=== PATIENT | female | born 1975 | race Caucasian/White ===

== ENCOUNTER 2024-08-21 06:27 | Day surgery (SDC) | payer BC, SELFPAY | END 2024-08-21 14:20 | disposition home or self-care (01) | LOC: GI 06:27 | PROVIDERS: ATTENDING PHYSICIAN Internal Medicine Gastroenterology | DX: Z12.11 Encounter for screening for malignant neoplasm of colon (principal); R19.5 Other fecal abnormalities; K64.8 Other hemorrhoids; K57.30 Diverticulosis of large intestine without perforation or abscess without bleeding; D12.0 Benign neoplasm of cecum; K63.5 Polyp of colon; Z83.719 Family history of colon polyps, unspecified | CPT/HCPCS: 45385; 88305 ==

== ENCOUNTER → 2024-09-12 18:34 | Outpatient (REF) | payer BC, SELFPAY | LOC: WDC 18:34 | PROVIDERS: ATTENDING PHYSICIAN Nurse Practitioner Family | DX: Z12.31 Encounter for screening mammogram for malignant neoplasm of breast (principal) | CPT/HCPCS: 77063; 77067 ==

== ENCOUNTER 2025-03-09 06:24 | Day surgery (SDC) | payer BC, SELFPAY ==
[2025-03-09 07:16] VITALS: BP 118/67
[2025-03-09 07:31] VITALS: BMI 22.8
[2025-03-09 07:38] VITALS: BMI 22.8
[2025-03-09 08:39] VITALS: BP 108/59
[2025-03-09 08:45] VITALS: BP 99/70
[2025-03-09 09:00] VITALS: BP 110/86
[2025-03-09 09:12] VITALS: BP 101/72
== END 2025-03-09 09:20 | disposition home or self-care (01) ==
LOC: SDS 06:24
PROVIDERS: ATTENDING PHYSICIAN Internal Medicine Gastroenterology
DX: D12.1 Benign neoplasm of appendix (principal); K57.30 Diverticulosis of large intestine without perforation or abscess without bleeding; K64.0 First degree hemorrhoids; Z86.0101 Personal history of adenomatous and serrated colon polyps; Z98.890 Other specified postprocedural states
CPT/HCPCS: 45385; 45380; 88305

== ENCOUNTER 2025-06-15 10:15 | Emergency (ER) | payer BC, SELFPAY ==
[2025-06-15 10:33] VITALS: BP 121/77
--- NOTE | 2025-06-15 11:47 | ED.GENMED ---
History of Present Illness
General
Chief Complaint: Skin Problem
Time Seen by Provider: 06/15/25 11:12
History of Present Illness
History of Present Illness:
see MDM
Phy Exam
Physical Exam
Physical Exam:
GENERAL: Alert , in no apparent distress
HEAD: NCAT
no facial droop
EYE: pupils equal and reactive, no nystagmus, no photophobia, minimal erythema to conjunctiva
NECK: Supple,full rom, nontender
ENT: o/p clr, mmm.
CARDIAC: Regular rate and rhythm . no edema
LUNGS: Clear breath sounds bilaterally, no acute respiratory distress, no wheezes/rales/rhonchi
ABDOMEN: Soft, without focal tenderness, no r/g, no cvat
NEUROLOGICAL: Alert and orientedx 4, cn intact, no facial asymmetry, 5/5 strength in UE/LE, sensation intact, romberg neg, ambulates without assistance, neg pronator drift
SKIN: Warm and dry, skin intact.
cluster of small papules or vesicles erythematous base to R pentecostal
no other rash
some mild erythema of R cheek
nontender
MUSCULOSKELETAL: No edema, well perfused.
PSYCH: Normal and appropriate interaction.
Course
Orders/Labs/Results
Orders:
Orders
06/15/25 11:45
Valacyclovir HCl [Valtrex] 1,000 mg PO NOW STA
06/15/25 12:00
Valacyclovir HCl [Valtrex] 1,000 mg PO BID
Vital Signs
Initial and Last Documented VS:
Initial Vital Signs
Temp Pulse Resp BP Pulse Ox
36.8 C 64 18 121/77 99
06/15/25 10:33 06/15/25 10:33 06/15/25 10:33 06/15/25 10:33 06/15/25 10:33
Last Documented Vital Signs
Temp Pulse Resp BP Pulse Ox
36.8 C 64 18 121/77 99
06/15/25 10:33 06/15/25 10:33 06/15/25 10:33 06/15/25 10:33 06/15/25 11:48
MDM/Problems Addressed
Differential Diagnosis Includes:
see MDM
MDM/Problems Addressed:
Note:
CHIEF COMPLAINT(S)
Facial numbness and tingling; rash on the face with a previous history of shingles.
HISTORY OF PRESENT ILLNESS
The patient is a 50-year-old female who presents with complaints of a rash that started on her right face yesterday with some tingling and funny feeling that started a day before. She reports a similar episode of shingles on her back earlier this
summer. The onset of current symptoms was noted 2 nights ago, with some mild tingling feeling on her R pentecostal. She feels a tingling sensation that she describes as feeling like �electricity� under the skin.yesterday she noticed a bump on the R side
of her pentecostal that looked maybe like a bug bite but wasn't itchy. and she noticed some redness to her R eye so she used visine; she can fully move her eyes, no facial droop or weakness.
The patient has a history of a previous shingles episode in february to her R back
she says she still feels some discomfort there at times and skin sensitivity
The patient denies any recent fever, chills, chest pain, or dyspnea. There is a past significant episode of Lyme disease mentioned. She has no history of autoimmune diseases.
No history of facial droop
Also said her right hand sometimes feels tingly but not currently and she has had neck issues in the past which she thinks is contributing
No headache no fever
PAST MEDICAL AND SURGICAL HISTORY
Previous episode of shingles and a significant history of Lyme disease noted.
PHYSICAL EXAM
GENERAL: Alert , in no apparent distress
HEAD: NCAT
EYE: pupils equal and reactive, no nystagmus, no photophobia, minimal conjunctival injection on the right side, no drainage, no photophobia
Tetracaine applied, fluorescein very faint uptake in the lower cornea not overlying the pupil
NECK: Supple,full rom, nontender
ENT: o/p clr, mmm. No ear lesions
CARDIAC: Regular rate and rhythm . no edema
LUNGS: Clear breath sounds bilaterally, no acute respiratory distress, no wheezes/rales/rhonchi
ABDOMEN: Soft, without focal tenderness, no r/g, no cvat
NEUROLOGICAL: Alert and orientedx 4, cn intact, no facial asymmetry, 5/5 strength in UE/LE, sensation intact, romberg neg, ambulates without assistance, neg pronator drift patient has no numbness to her arms on palpation
SKIN: Warm and dry, skin intact.
MUSCULOSKELETAL: No edema, well perfused.
PSYCH: Normal and appropriate interaction.
PROBLEM LIST
- Acute Problems:
- Shingles rash on the face near the right eye.
- Facial numbness and tingling.
- Chronic Problems:
- History of shingles.
- History of Lyme disease.
PLAN
1. Initiation of Valacyclovir as antiviral treatment for the shingles.
2. Referral to an mental health aides teacher for an eye examination to rule out corneal involvement due to proximity of the rash to the eye.
3. Patient advised to monitor for symptoms of [place] palsy and report if they occur.
4. Follow-up with a family practitioner if symptoms escalate or new symptoms develop over the weekend.
DIFFERENTIAL DIAGNOSIS
The Differential Diagnosis includes, in no particular order and is not limited to:
1. Herpes Zoster (shingles)
2. [place] Palsy
3. Herpes Simplex Virus
4. Contact Dermatitis
5. Allergic Conjunctivitis
6. Trigeminal Neuralgia
7. Migraine with Aura
8. Lyme Disease Reactivation
9. Central Nervous System Disorders (e.g., Multiple Sclerosis)
10. Autoimmune conditions affecting the nervous system.
50-year-old female with history of previous shingles rash on her right back few months ago here with what looks like shingles again with tingling and funny feeling in her right face along with a very early vesicular rash in clusters on the right
pentecostal, the right eye is minimally injected. She has no photophobia or eye pain or vision changes. I did do fluorescein staining and there was a slight uptake. Concern for herpes ophthalmicus. She has no lesions in her ear. There is no facial
droop. She has normal sensation despite feeling like it feels funny in her right face. Her arms and legs had normal strength and sensation.
I spoke with the ED attending about this patient
Given the uptake on her cornea I recommended that she see an eye doctor and I did speak with Dr. Busch who could see her in the office now. Patient will be discharged after her first dose of Valtrex and recommended to follow-up
*Pulse Oximetry
SaO2: 99
Oxygen Mode of Delivery: Room air
Patient hypoxic: no (99)
*Critical Care Note
Total Time (30-74mins, 75-104mins- exclusive of procedures): Not Applicable
ED Attending Note
-
Portions of this chart may have been created with voice recognition software.� Occasional wrong word or��sound alike� substitutions may have occurred due to the inherent limitations of voice recognition software.
Discharge Plan
Departure
Patient Disposition: Home (Routine Discharge)
Date of Disposition: 06/15/25
Time of Disposition: 12:23
Patient with high blood pressure during this ER visit?: No
Condition: Fair
Discharge Problem:
Shingles
Instructions: Shingles
Prescriptions:
New
valacyclovir 1 gram tablet
1,000 mg PO TID Qty: 21 0RF
Referrals:
Jaden Busch MD [Active, Ophthalmology] - Next open appointment
Ashley Cooper CRNP [Family Provider, Family Practice] - Follow up in 2-3 days
Activity Restrictions/Additional Instructions:
Your rash appears like shingles. You should take the Valtrex 3 times a day for 7 [address] Go directly to Dr. Busch's office. Watch for worsening symptoms like facial droop, fever, rash on your nose, severe eye pain and return as needed.
Confusion, neck stiffness, severe headache etc.
Interventions
Interventions:
*Risk Screen - Suicide Last Done: 06/15/25 10:33
*General Assessment Last Done: 06/15/25 10:33
*Neglect/Abuse Screening Last Done: 06/15/25 10:33
*ED COVID-19 Vaccine History Last Done: 06/15/25 10:33
*ED Influenza Vaccine History Last Done: 06/15/25 10:33
*Nursing Disposition Last Done: 06/15/25 12:45
ED-Skin Assessment Last Done: 06/15/25 12:00
Discharge Date and Time
Discharge Date/Time: 06/15/25 12:46
Print Language: KAZAKH
[2025-06-15] MEDS: VALTREX 1000 MG PO (11:54)
== END 2025-06-15 12:46 | disposition home or self-care (01) ==
LOC: EMR 10:15
PROVIDERS: EMERGENCY PHYSICIAN Emergency Medicine; FAMILY PHYSICIAN Nurse Practitioner Family
DX: B02.9 Zoster without complications (principal); Z86.19 Personal history of other infectious and parasitic diseases
CPT/HCPCS: 99282

== ENCOUNTER 2025-07-06 10:21 | Inpatient (IN) | payer BC, SELFPAY ==
[2025-06-22 09:25] LABS: Hematocrit 37.1 % (37.0-47.0); Hemoglobin 12.7 g/dL (12.0-16.0); Mean Corp Hgb Conc. 34.2 g/dL (33.0-37.0); Mean Corpuscular Volume 89.4 fL (81.0-99.0); Platelet Count 246 10^3/uL (130-400); Red Cell Dist. Width 11.9 % (11.5-14.5)
[2025-06-22 09:27] LABS: INR 1.00; PT 13.5 Sec (11.4-14.6)
[2025-06-22 09:28] LABS: APTT 30.7 Sec (23.4-35.0)
[2025-06-22 09:51] LABS: ALT (SGPT) 21 U/L (0-35); AST (SGOT) 29 U/L (14-36); Albumin 4.5 g/dl (3.5-5.0); Alkaline Phosphatase 56 U/L (38-126); Blood Urea Nitrogen 16 mg/dl (7-17); Calcium 9.6 mg/dl (8.4-10.2); Carbon Dioxide 29 mmol/L (22-30); Chloride 105 mmol/L (98-107); Glucose 100 mg/dl (70-99); Potassium 4.9 mmol/L (3.5-5.1); Sodium 138 mmol/L (135-145); Total Protein 6.9 g/dl (6.3-8.2); eGFR > 60.00
[2025-06-22 11:28] LABS: Glycohemoglobin (HgbA1c) 5.3 % (4.0-5.9)
[2025-06-22 14:06] VITALS: BMI 21.9
[2025-07-06] VITALS (9 sets, daily range): BP systolic 104–131; BP diastolic 38–72; BMI 21.9
[2025-07-06] MEDS: NORMOSOL-R/PLASMALYTE-A 1000 IV (11:34)
[2025-07-06] MEDS: LYRICA 150 MG PO (11:35)
[2025-07-06] MEDS: CELEBREX 200 MG PO (11:36)
[2025-07-06] MEDS: TYLENOL 1000 MG PO (11:36)
[2025-07-06] MEDS: TRANSDERM-SCOP 1 PATCH TRANSDERM (11:47)
[2025-07-06] MEDS: HEPARIN 5000 UNITS SC (12:31)
[2025-07-06] MEDS: RELISTOR 12 MG SC (12:33)
--- NOTE | 2025-07-06 15:38 | W.IMMPOSTOP ---
Addendum entered and electronically signed by William Laughlin MD 07/06/25 16:21:
patient's sister was updated via phone
Original Note:
Surgical Immed Post Op Note
-
Primary Surgeon: William Laughlin MD
Assisting Surgeon: AMANDA Henson
Pre-op Diagnosis: Appendiceal polyp
Post-op Diagnosis: Appendiceal polyp
Procedure Performed: Robotic appendectomy with partial cecectomy, repair of liver injury, intraoperative colonoscopy, lysis of adhesions, laparoscopic TAP block
Anesthesia Type: General
Specimen / Cultures: Appendix with partial cecum
Estimated Blood Loss: 15 mL
Complications: None
Operative Findings: After Veress entry, identified a punctate injury to the liver with some oozing, likely due to the veress needle; placed 3 robotic ports and controlled liver injury with electrocautery; redundant ascending colon with the appendix
draped into the pelvis; performed intraoperative colonoscopy and identified the ileocecal valve and appendiceal orifice; there was liquid stool precluding adequate visualization; lavaged the area with adequate visualization of the AO; appendiceal
orifice without any obvious polyp tissue seen extending beyond the appendiceal orifice; docked the robotic and lysed adhesions from the appendix and cecum to the right lower quadrant and right pelvic brim; identified the right ureter and kept the
safe; mobilized the appendix and cecum; divided the mesentery of the appendix with the vessel sealer; 1 to 2 cm margin of cecum was easily obtainable without interfering with the terminal ileum or ileocecal valve; stapled across with the 60 mm blue
load of the robotic stapler; small amount of oozing noted at the corner of the staple line, controlled with figure of eight 2-0 Vicryl stitch; closed the 12 mm port with the suture passer and an 0 Vicryl stitch; had some oozing from the peritoneal
aspect of the port, controlled with electrocautery; gave dose of TXA; evaluated liver injury once more and remainder of operative field, which remained hemostatic; performed laparoscopic TAP block and removed right mid/lower port under direct
visualization, no bleeding noted; removed the suprapubic port and camera and abdomen collapsed; injected remainder of local (total of 50 mL of 0.25% Marcaine with epi and 0.5 mg of Decadron) around the incisions; closed with 4 Monocryl and Dermabond
--- NOTE | 2025-07-06 15:54 | OR.RPT ---
Operative Report
Operative Report
DATE OF OPERATION: 07/06/2025
SURGEON: William Laughlin MD
PREOPERATIVE DIAGNOSIS: Appendiceal orifice polyp
POSTOPERATIVE DIAGNOSIS: Appendiceal orifice polyp
OPERATION: Robotic appendectomy with partial cecectomy, repair of liver injury, intraoperative colonoscopy, lysis of adhesions, laparoscopic TAP block
ASSISTANTS:
1. AMANDA Henson
ANESTHESIA: General
ESTIMATED BLOOD LOSS: 15 mL
FINDINGS:
1. Punctate liver injury from Veress needle placement, easily controlled with electrocautery
2. Intraoperative colonoscopy with adequate visualization of the appendiceal orifice after lavage of the cecum; no concerning polyp tissue extending beyond the appendiceal orifice
3. Filmy adhesions from the appendix to the right pelvic brim and cecum to the right lower quadrant
SPECIMENS:
1. Appendix with partial cecum
DRAINS: None
COMPLICATIONS: No immediate complications.
INDICATIONS: The patient is a 50-year-old female who was found to have a precancerous polyp within the appendiceal orifice that was not amenable to endoscopic removal. Therefore, I recommended appendectomy. I explained the possibility of needing
to perform an ileocolic resection if the appendiceal orifice was too close to the terminal ileum or if there was polyp tissue extending beyond the orifice requiring more extensive resection. The operation was discussed with the patient in detail,
including the risks, benefits and alternatives. Risks described included, but not limited to, bleeding, infection, damage to nearby structures (i.e., bowel, solid organ, bladder), need for more extensive resection than anticipated, recurrence of
polyp, positive margin, conversion to open, and anesthetic risks. The patient understood and agreed to proceed. The consent was signed and placed in the chart.
PROCEDURE IN DETAIL: The patient was taken to the operating room and placed on the operating table in supine position. Sequential compression devices were placed bilaterally. General anesthesia was induced and the patient was intubated without
complication. Bilateral arms were tucked. Bryant catheter was placed with sterile technique. Anesthesia placed an orogastric tube. Preoperative antibiotics were given. The abdomen was shaved, prepped and draped in a sterile fashion. A marking
pen was used to jacqueline out the midline. A time-out was performed verifying the correct patient, procedure, operative site, positioning, and special equipment.
At [place], using an 11 blade scalpel, an 8 mm incision was made. A Veress needle was used to obtain abdominal access. After 3 clicks, insufflation was initiated and the opening pressure was noted to be less than 8 mmHg. The abdomen was
insufflated to a pressure of 12, which the patient tolerated well. The left mid/upper 8 mm robotic trocar was introduced and the robotic endoscope advanced. There was a punctate injury noted on the anterior surface of the left lobe of the liver
that was oozing a small amount of blood. No other injuries were noted from Veress needle or port placement. Two additional ports were placed under direct visualization at the suprapubic position, 2 fingerbreadths above the pubic symphysis, and in
the left mid/lower abdomen along a diagonal. Care was taken to avoid injury to the epigastric vessels and the bladder.
Using laparoscopic scissors and electrocautery, the oozing from the liver injury was easily controlled. Using atraumatic graspers, the omentum was retracted above the transverse colon. The patient was placed in slight Trendelenburg. The ascending
colon was somewhat redundant and the cecum was seen within the pelvis. This was retracted and the appendix was identified. There were filmy adhesions from the appendix to the right pelvic brim as well as the cecum and ascending colon to the right
lower quadrant and right gutter. I performed intraoperative colonoscopy. The abdomen was desufflated. The lubricated colonoscope was passed transanally and carefully advanced to the cecum, confirmed by visualizing the ileocecal valve and the
appendiceal orifice. There was some liquid stool that was precluding adequate visualization of the cecum. After copious lavage, I was able to adequately visualize the cecum and appendiceal orifice. There was no polyp tissue seen extending outside
of the appendiceal orifice. Therefore, I elected to proceed with appendectomy with partial cecectomy. I suctioned the gas from the cecum and ascending colon. The colonoscope was pulled back into the ascending colon and turned off. It was secured
to the drapes. The patient was placed in [id number] with more Trendelenburg. The robot was docked from the patient's right side. The instruments introduced were the bipolar grasper, camera and scissors.
I retracted the small bowel from the pelvis to expose the right lower quadrant. I elevated the appendix and lysed the filmy adhesions to the right pelvic brim. I identified the right ureter and kept it safe from my dissection. I continued the
mobilization by lysing the adhesions from the cecum to the right lower quadrant. I divided the mesoappendix with the vessel sealer to the base of the appendix. I divided the ligament of Treves. The appendix and cecum were now adequately
mobilized. There was at least 2 to 3 cm of cecum between the base of the appendix and the terminal ileum. Therefore, I proceeded with appendectomy and partial cecectomy. The left mid/upper robotic port was upsized to a 12 mm port under direct
visualization. I divided across the cecum with the 60 mm robotic stapler with a blue load to include about 1 cm margin of cecum. The medial corner of the staple line had a slight ooze. I controlled this with a 2-0 Vicryl stitch in a
[id number] fashion. The specimen was placed in an endoscopic retrieval bag and removed from the 12 mm port. The operative field was assessed once more and was hemostatic. The liver injury was also evaluated and remained hemostatic.
The 12 mm port site was closed with an 0 Vicryl stitch in a simple interrupted fashion using the suture passer under direct visualization. There was a slight ooze from the peritoneal aspect of this incision. TXA was administered and the oozing was
controlled with electrocautery. The robotic instruments were removed and the robot was undocked. A laparoscopic TAP block was performed. A total of 30 mL of 0.25% Marcaine with epinephrine mixed with 0.3 mg of Decadron was injected in the
transversus abdominis plane bilaterally in 3 locations. The operative field was assessed once more and remained hemostatic. The left mid/lower port was removed under direct visualization and no bleeding was noted. The suprapubic port and camera
were removed. The abdomen was allowed to collapse. The incisions were injected with an additional of 20 mL of 0.25% Marcaine with epinephrine and 0.2 mg of dexamethasone. The skin of the ports were closed with 4-0 Monocryl in subcuticular fashion.
Dermabond was used for dressing.
At this point, the procedure was complete. The patient was awoken and extubated without complication. The bryant was removed. All needle, sponge and instrument counts were reported as correct. The patient tolerated the procedure well and was
transferred to the recovery room in stable condition.
DICTATED BY: William Laughlin MD
[2025-07-06] MEDS: TYLENOL 650 MG PO (18:06)
== END 2025-07-06 19:03 | disposition home or self-care (01) | DRG 331 ==
LOC: AMOS 10:21
PROVIDERS: ADMITTING PHYSICIAN Surgery; FAMILY PHYSICIAN Nurse Practitioner Family
PROC: 0DBH4ZZ Excision of Cecum, Percutaneous Endoscopic Approach (ICD-10-PCS; 2025-07-06)
PROC: 0DTJ4ZZ Resection of Appendix, Percutaneous Endoscopic Approach (ICD-10-PCS; 2025-07-06)
PROC: 0DNU4ZZ Release Omentum, Percutaneous Endoscopic Approach (ICD-10-PCS; 2025-07-06)
PROC: 8E0W4CZ Robotic Assisted Procedure of Trunk Region, Percutaneous Endoscopic Approach (ICD-10-PCS; 2025-07-06)
DX: K63.5 Polyp of colon (principal); N73.6 Female pelvic peritoneal adhesions (postinfective); Z88.5 Allergy status to narcotic agent
CPT/HCPCS: 71046; 80053; 83036; 85027; 85610; 85730; 86850; 86900; 86901; 88304; 93005